=== PATIENT | male | born 1960 | race Hispanic/Latino ===

== ENCOUNTER 2016-11-27 23:36 | Emergency (ER) | payer MEDICAID ==
[2016-11-28 00:15] VITALS: BP 95/68
[2016-11-28 02:45] LABS: Urine Drugs of Abuse Note Disclamer
[2016-11-28 02:59] LABS: Bilirubin,Urine NEG (Negative); Blood,Urine NEG (Negative); Ketones,Urine NEG (Negative); Leukocyte Esterase,Urine NEG (Negative); Mucus,Urine FEW /HPF; Nitrite,Urine NEG (Negative); Protein,Urine <15 mg/dL mg/dL (Negative); Urobilinogen,Urine < 2.0 mg/dL (<2.0); WBC,Urine < 1.0 /HPF (0.0-6.0)
[2016-11-28 04:11] LABS: Anion Gap 21 mmol/L; Blood Urea Nitrogen 22 mg/dL (9-20); Calcium 9.1 mg/dL (8.4-10.2); Carbon Dioxide 24 mmol/L (22-30); Chloride 87.4 mmol/L (98-107); Glucose 93 mg/dL (75-100); Potassium 3.9 mmol/L (3.6-5.0); Sodium 128 mmol/L (137-145)
[2016-11-28 04:49] LABS: Basophils % (Auto) 0.6 % (0.0-1.8); Eosinophils % (Auto) 2.8 % (0.0-4.3); Hematocrit 42.8 % (35.5-45.6); Hemoglobin 14.8 gm/dl (11.8-15.2); Mean Corpuscular HGB Conc 35 % (32-34); Mean Corpuscular Hemoglobin 32 pg (28-32); Mean Corpuscular Volume 92 fl (84-94); Platelet Count 274 K/mm3 (140-440); Red Blood Count 4.66 M/mm3 (3.65-5.03); Red Cell Distribution Width 12.9 % (13.2-15.2); White Blood Count 12.2 K/mm3 (4.5-11.0)
== END 2016-11-28 03:35 | disposition left against medical advice (07) ==
LOC: ED 23:36
DX: R11.2 Nausea with vomiting, unspecified (principal); R19.7 Diarrhea, unspecified; R10.30 Lower abdominal pain, unspecified; Z53.21 Procedure and treatment not carried out due to patient leaving prior to being seen by health care provider
CPT/HCPCS: 36415; 80048; 80307; 81001; 84436; 84443; 85025

== ENCOUNTER 2019-10-02 20:17 | Emergency (ER) | payer MEDICAID ==
[2019-10-02 20:38] VITALS: BP 129/81
[2019-10-02] MEDS ORDERED: DIPHtheria,PERTUSSIS(ACELL),TETANUS VACCINE/PF 0.5 ML VIAL IM ONE (21:18)
--- NOTE | 2019-10-02 21:57 | XRay Report ---
HISTORY: Stepped on nail COMPARISON: None. TECHNIQUE: AP lateral and obliques views were obtained FINDINGS: Bones: No fracture or dislocation. Joint spaces: Severe degenerative changes of the first metatarsal-phalangeal articulation with osteop hyte formation Soft tissues: No significant abnormality. Additional findings: None. IMPRESSION: 1. No significant abnormality. Signer Name: Kaiden Acevedo MD Signed: 10/02/2019 9:52 PM Workstation Name: [id number]
[2019-10-02] MEDS ORDERED: IBUPROFEN 600 MG TAB PO ONE (22:19)
[2019-10-02] MEDS ORDERED: levoFLOXacin 500 MG TAB PO ONE (22:19)
--- NOTE | 2019-10-02 22:38 | Emergency Department Report ---
ED Lower Extremity HPI - General Chief Complaint: Extremity Injury, Lower Stated Complaint: STEPPED ON A CHELA NAIL Source: patient Mode of arrival: Ambulatory Limitations: No Limitations - History of Present Illness Initial Comments: Patient is a 59-year-old white male with a history of [id number]-[id number] diabetes, hypertension, chronic osteoarthritis, chronic liver disease due to hepatitis C, hypothyroidism and chronic gouty arthropathy who presents to the ED with complaint of acute onset persistent severe right plantar foot pain with swelling after he accidentally stepped on an old chela nail that appears through his shoes and onto his right foot 24 hours ago. Patient states that the nail was removed from his right foot but subsequently the foot became more severely painful and swollen. Patient states that he is not up-to-date with his tetanus vaccinations. Patient states that the pain is worse with bearing weight on the right foot and ambulation. Patient denies numbness and tingling or weakness of right foot, dizziness, syncope, fall, loss of consciousness, nausea and vomiting, fever, chills, headache or lack of appetite. MD Complaint: foot injury (right foot pain), other (stepped on an old chela nail, causing puncture wound) -: Sudden, hour(s) (24) Injury: Foot: Right (Puncture wound of right plantar foot) Type of Injury: laceration (puncture wound on right plantar foot), puncture wound (right plantar foot) Place: home Severity: severe Severity scale (0 -10): 7 Improves With: nothing Worsens With: weight bearing, movement, palpation Context: stepped on nail Associated Symptoms: swelling, able to partially bear weight. denies: numbness, tingling, unable to bear weight, ambulatory - Related Data Home Medications Medication Instructions Recorded Confirmed Last Taken ALPRAZolam [Alprazolam] 0.5 mg PO BID 05/06/13 08/31/14 08/31/14 HYDROcodone/ACETAMINOPHEN 1 each PO TID PRN 05/06/13 08/31/14 08/31/14 [Hydrocodon-Acetaminophn 10-325] Levothyroxine [Synthroid] 150 mcg PO QAM 05/06/13 08/31/14 08/31/14 Lisinopril 10 mg PO DAILY 05/06/13 08/31/14 08/31/14 Metoprolol Tartrate 25 mg PO DAILY 05/06/13 08/31/14 08/31/14 Potassium Chloride [Klor-Con M20] 20 meq PO DAILY 05/06/13 08/31/14 08/31/14 glipiZIDE [Glipizide Xl] 5 mg PO DAILY 05/06/13 08/31/14 08/31/14 hydroCHLOROthiazide [HCTZ] 25 mg PO DAILY 05/06/13 08/31/14 08/31/14 Previous Rx's Medication Instructions Recorded Last Taken Type Ciprofloxacin HCl [Ciprofloxacin 500 mg PO Q12HR #20 tab 10/02/19 Unknown Rx TAB] Ibuprofen [Motrin] 800 mg PO Q8HR PRN #24 tablet 10/02/19 Unknown Rx Allergies Allergy/AdvReac Type Severity Reaction Status Date / Time No Known Allergies Allergy Verified 05/06/13 15:48 ED Review of Systems ROS: Stated complaint: STEPPED ON A CHELA NAIL Other details as noted in HPI Constitutional: denies: chills, fever Eyes: denies: eye pain, eye discharge, vision change ENT: denies: ear pain, throat pain Respiratory: denies: cough, shortness of breath, wheezing Cardiovascular: denies: chest pain, palpitations Endocrine: no symptoms reported Gastrointestinal: denies: abdominal pain, nausea, diarrhea Genitourinary: denies: urgency, dysuria Musculoskeletal: arthralgia (right plantar foot due to puncture wound), other (Puncture wound on right plantar foot after stepping on a chela nail). denies: back pain, joint swelling Skin: other (Puncture wound of right plantar foot). denies: rash, lesions Neurological: denies: headache, weakness, paresthesias Psychiatric: denies: anxiety, depression Hematological/Lymphatic: denies: easy bleeding, easy bruising ED Past Medical Hx - Past Medical History Previous Medical History?: Yes Hx Hypertension: Yes Hx Diabetes: Yes Hx Liver Disease: Yes (Hepatitis C) Hx Arthritis: Yes Additional medical history: gout. thyroid disease. TB - Surgical History Past Surgical History?: Yes Additional Surgical History: Cyst removal from gum - Social History Smoking Status: Current Every Day Smoker Substance Use Type: None - Medications Home Medications: Home Medications Medication Instructions Recorded Confirmed Last Taken Type ALPRAZolam [Alprazolam] 0.5 mg PO BID 05/06/13 08/31/14 08/31/14 History HYDROcodone/ACETAMINOPHEN 1 each PO TID PRN 05/06/13 08/31/14 08/31/14 History [Hydrocodon-Acetaminophn 10-325] Levothyroxine [Synthroid] 150 mcg PO QAM 05/06/13 08/31/14 08/31/14 History Lisinopril 10 mg PO DAILY 05/06/13 08/31/14 08/31/14 History Metoprolol Tartrate 25 mg PO DAILY 05/06/13 08/31/14 08/31/14 History Potassium Chloride [Klor-Con M20] 20 meq PO DAILY 05/06/13 08/31/14 08/31/14 History glipiZIDE [Glipizide Xl] 5 mg PO DAILY 05/06/13 08/31/14 08/31/14 History hydroCHLOROthiazide [HCTZ] 25 mg PO DAILY 05/06/13 08/31/14 08/31/14 History Ciprofloxacin HCl [Ciprofloxacin 500 mg PO Q12HR #20 tab 10/02/19 Unknown Rx TAB] Ibuprofen [Motrin] 800 mg PO Q8HR PRN #24 tablet 10/02/19 Unknown Rx ED Physical Exam - General Limitations: No Limitations General appearance: alert, in no apparent distress - Head Head exam: Present: atraumatic, normocephalic, normal inspection - Eye Eye exam: Present: normal appearance, PERRL, EOMI Pupils: Present: normal accommodation - ENT ENT exam: Present: normal exam, normal orophraynx, mucous membranes moist, TM's normal bilaterally, normal external ear exam - Neck Neck exam: Present: normal inspection, full ROM. Absent: tenderness, meningismus - Respiratory Respiratory exam: Present: normal lung sounds bilaterally. Absent: respiratory distress, wheezes, rales, stridor, chest wall tenderness, accessory muscle use - Cardiovascular Cardiovascular Exam: Present: regular rate, normal rhythm, normal heart sounds. Absent: systolic murmur, diastolic murmur, rubs, gallop - GI/Abdominal GI/Abdominal exam: Present: soft, normal bowel sounds. Absent: tenderness, guarding, rebound, organomegaly - Extremities Exam Extremities exam: Present: normal inspection, full ROM, tenderness (Palpable severe right foot tenderness due to puncture wound on right plantar foot), normal capillary refill. Absent: pedal edema, joint swelling, calf tenderness - Back Exam Back exam: Present: normal inspection, full ROM. Absent: tenderness, CVA tenderness (R), CVA tenderness (L), muscle spasm, paraspinal tenderness, vertebral tenderness - Neurological Exam Neurological exam: Present: alert, oriented X3, CN II-XII intact, normal gait, reflexes normal - Psychiatric Psychiatric exam: Present: normal affect, normal mood - Skin Skin exam: Present: warm, dry, intact, normal color, other (Puncture wound on right plantar foot on the arch of the foot). Absent: rash ED Course Vital Signs 10/02/19 20:37 Temperature 97.7 F Pulse Rate 80 Respiratory 18 Rate Blood Pressure 129/81 O2 Sat by Pulse 92 Oximetry ED Lower Extremity MDM - Radiology Data Radiology results: report reviewed, image reviewed Findings [facility] [address] [place] [address] XRay Report Signed Patient: ANITA DICK MR# : [id number] : 1960 Acct:[id number] Age/Sex: 59 / M ADM Date: 10/02/19 Loc: ED Attending Dr: Ordering Physician: YORDY DAVENPORT Date of Service: 10/02/19 Procedure(s): XR foot 3+V RT Accession Number(s): [id number] cc: YORDY DAVENPORT Fluoro Time In Minutes: HISTORY: Stepped on nail COMPARISON: None. TECHNIQUE: AP lateral and obliques views were obtained FINDINGS: Bones: No fracture or dislocation. Joint spaces: Severe degenerative changes of the first metatarsal-phalangeal articulation with osteophyte formation Soft tissues: No significant abnormality. Additional findings: None. IMPRESSION: 1. No significant abnormality. Signer Name: Kaiden Acevedo MD Signed: 10/02/2019 9:52 PM Workstation Name: [id number] Transcribed By: WG Dictated By: Kaiden Acevedo MD Electronically Authenticated By: Kaiden Acevedo MD Signed Date/Time: 10/02/192151 DD/ 50 TD/TT: - Medical Decision Making If Plantar Puncture Wound, Discussed with Patient: Risk of Infection This is a 59-year-old white male with a history of [id number]-[id number] diabetes, hypertension, chronic osteoarthritis, chronic liver disease due to hepatitis C, hypothyroidism and chronic gouty arthropathy who presents to the ED with complaint of acute onset persistent severe right plantar foot pain with swelling after he accidentally stepped on an old chela nail that appears through his shoes and onto his right foot 24 hours ago. Patient states that the nail was removed from his right foot but subsequently the foot became more severely painful and swollen. Patient states that he is not up-to-date with his tetanus vaccinations. Patient states that the pain is worse with bearing weight on the right foot and ambulation. In the ED, patient is alert and oriented x3 and is not in distress, but appears to be in significant pain. Patient was treated for pain in the ED and also received booster tetanus vaccinations. The right foot x-ray shows no acute fractures or subluxations or presence of any foreign bodies in the tissues of the right foot foot. Patient was discharged home on pain medication and antibiotics and advised to follow-up with his primary care physician in 5 to 7 days for reevaluation or return to the ED immediately if symptoms get worse. - Differential Diagnosis Puncture wound; cellulitis; fractured foot Critical care attestation.: If time is entered above; I have spent that time in minutes in the direct care of this critically ill patient, excluding procedure time. ED Disposition Clinical Impression: Puncture wound of plantar aspect of right foot Qualifiers: Encounter type: initial encounter Qualified Code(s): S91.331A - Puncture wound without foreign body, right foot, initial encounter Disposition: DC- TO HOME OR SELFCARE Is pt being admited?: No Does the pt Need Aspirin: No Condition: Stable Instructions: Puncture Wound (ED) Additional Instructions: Take medication with food, drink plenty of fluids and follow-up with your primary care physician in 5 to 7 days for reevaluation. Return to the ED immediately if symptoms get worse. Prescriptions: Ciprofloxacin HCl [Ciprofloxacin TAB] 500 mg PO Q12HR #20 tab Ibuprofen [Motrin] 800 mg PO Q8HR PRN #24 tablet PRN Reason: Pain , Severe (7-10) Referrals: [facility] [Provider Group] - 3-5 Days Time of Disposition: 22:44 Print Language: NORWEGI[place]
== END 2019-10-02 23:12 | disposition home or self-care (01) ==
LOC: ED 20:17
DX: S91.331A Puncture wound without foreign body, right foot, initial encounter (principal); I10 Essential (primary) hypertension; E11.9 Type 2 diabetes mellitus without complications; M13.88 Other specified arthritis, other site; M10.9 Gout, unspecified; F17.200 Nicotine dependence, unspecified, uncomplicated; Z79.899 Other long term (current) drug therapy; W22.8XXA Striking against or struck by other objects, initial encounter; Y93.89 Activity, other specified; Y92.89 Other specified places as the place of occurrence of the external cause; Y99.8 Other external cause status
CPT/HCPCS: 90471; 90715; 99283